=== PATIENT | female | born 1965 | race Caucasian/White ===

== ENCOUNTER 2024-08-14 10:59 | Outpatient (CLI) | payer BC, SELFPAY ==
--- NOTE | ~2024-08-14 | XR_ITS ---
Clinical Indication: Chest pain PA and lateral views of the chest: Comparison: None Findings: The lungs are clear, without evidence of focal consolidation or pleural effusion. Cardiome diastinal silhouette is within normal limits. Bones and soft tissues are unremarkable. Impression: Normal chest. Reviewed, dictated and finalized at location . Impression: Normal chest.
--- NOTE | ~2024-08-14 | XR_ITS ---
3 VIEWS LUMBAR SPINE Ordering provider: Ayanna Epps, PATramaine History: . Chest pain . Comparison: None. FINDINGS: VERTEBRAL BODIES: No visible fracture or subluxation. DISK SPACES: Narrowing of L3-L4, L4-L5 and L5-S1. SOFT TISSUES: Normal. Loaded colon with fecal material is suggestive of constipation. IMPRESSION: No acute osseous abnormality lumbar spine. Multilevel degenerative disc disease. Reviewed, dictated and finalized at location A.
--- NOTE | ~2024-08-14 | XR_ITS ---
AP and lateral views of the right hip Clinical history: Pain Findings: No acute fracture or dislocation is seen. Osseous alignment is anatomic. Right hip joint is unremarkable. Soft tissues are unremarkable. Impression: No significant abnormality is seen. Reviewed, dictated and finalized at location M. Impression: No significant abnormality is seen.
== END 2024-08-14 11:00 | disposition home or self-care (01) ==
LOC: MICIMG 11:07
PROVIDERS: PCP Physician Assistant; Visit Provider Physician Assistant
DX: M51.369 Other intervertebral disc degeneration, lumbar region without mention of lumbar back pain or lower extremity pain (principal); M51.379 Other intervertebral disc degeneration, lumbosacral region without mention of lumbar back pain or lower extremity pain; Z86.018 Personal history of other benign neoplasm
CPT/HCPCS: 71046; 72100; 73502

== ENCOUNTER 2024-08-21 08:15 | Outpatient (CLI) | payer BC, SELFPAY ==
--- NOTE | 2024-08-21 | EST_ITS ---
Patient Info Name: Lizy Fishman Age: 59 years : 1965 Gender: Female Ht: 66 in Wt: 213 lbs BSA: 2.16 m2 HR: 55 bpm BP: 126 / 84 mmHg Exam Date: 08/21/2024 9:25 AM Exam Location: [facility] Patient Status: Outpatient Admit Date: 08/21/2024 Staff Ordering Physician: Supriya, Ayanna SERVIN Attending Provider: Supriya, Ayanna SERVIN Exercise Technologist: [place] Exercise Physician: Napoleon Navarrete DO Exam Type: CA stress mil w NM Study Info Indications R07.9 - Chest pain, unspecified A regadenoson stress test was performed. Summary 1. 1. Negative lexiscan stress test for ischemic ST changes by ECG criteria. 2. 2. Stable hemodynamics throughout the test. 3. 3. Nuclear scan to follow and will be reported separately. Please correlate with it. 4. 4. Patient informed of the above results. Protocol: Lexiscan Stress ECG Details Stage: REST Duration (min): 2 min : 23 sec HR (bpm): 53 SBP (mmHg): 126 DBP (mmHg): 84 Stage: REST Duration (min): 2 min : 46 sec HR (bpm): 58 SBP (mmHg): 126 DBP (mmHg): 84 Stage: REST Duration (min): 15 min : 21 sec HR (bpm): 62 SBP (mmHg): 126 DBP (mmHg): 84 Stage: STAGE 1 Duration (min): 0 min : 59 sec HR (bpm): 94 SBP (mmHg): 128 DBP (mmHg): 91 Stage: RECOVERY Duration (min): 1 min : 0 sec HR (bpm): 80 SBP (mmHg): 128 DBP (mmHg): 91 Stage: RECOVERY Duration (min): 2 min : 0 sec HR (bpm): 72 SBP (mmHg): 128 DBP (mmHg): 91 Stage: RECOVERY Duration (min): 3 min : 0 sec HR (bpm): 70 SBP (mmHg): 112 DBP (mmHg): 86 Stage: RECOVERY Duration (min): 3 min : 7 sec HR (bpm): 68 SBP (mmHg): 112 DBP (mmHg): 86 Rest HR: 62 bpm Peak HR: 99 bpm Rest Sys BP: 126 mmHg Peak Sys BP: 128 mmHg Max Pred HR: 159 bpm % Max Pred HR: 62 % Target HR: 135 bpm Max RPP: 12,672 bpm*mmHg Termination Reason: Completed protocol Cardiac Symptoms: Shortness of breath Total Time: 1 min : 0 sec Rest Almaraz BP: 84 mmHg Peak Almaraz BP: 91 mmHg Total Dose: 0.4 mg Resting ECG Sinus rhythm. Stress ECG No ST changes. Arrhythmias None. Report Signatures
--- NOTE | ~2024-08-21 | NM_ITS ---
EXAMINATION: NM mil stress w perfusion DATE: 08/21/2024 11:26 INDICATION: Chest pain. TECHNIQUE: Rest images were obtained following intravenous administration of 10.31 mCi Tc99m tetrofos min (Myoview). The patient was infused intravenously with Lexiscan (regadenoson). Then, 32.7 mCi Tc99 m tetrofosmin (Myoview) was administered intravenously, and stress images were obtained. Data was rec onstructed into short axis and horizontal and vertical long axis SPECT images. Gated SPECT images wer e also obtained. COMPARISON: None. FINDINGS: There is no definite reversible or fixed perfusion abnormality to suggest ischemia or infar ction. There is no segmental wall motion abnormality. Left ventricular ejection fraction measures > 70%. IMPRESSION: 1. No definite ischemia or infarct. 2. Normal left ventricular ejection fraction measuring >70%. Reviewed, dictated and finalized at location A.
--- OUTSIDE RECORDS SUMMARY | 2024-08-21 08:34 | XMS_ITS | Data Portability ---
Author Organization [facility] Jamarcus Kessler Address [address] [facility] [place] [address] Care Team Providers Care Search Engine Optimization Manager Name Role Phone KARIE CHEEMA Primary Care Provider Unavailab le Assessment Encounter Date Assessment Date Assessment LastModified by Organization Details LastModified Time 11/11/2023 11/11/2023 Mammogram. pt declines testing. aware of guidelines and recommendatio ns. cologuard UTD in the last 3 years. Not available 12/02/2023 17:08:29 06/08/2024 06/08/2024 Mammogram. pt declines testing. aware of guidelines and recommendatio ns. cologuard UTD in the last 3 years. Not available 06/08/2024 09:20:19 Plan of Treatment Reminders Order Date Submit Date Provider Last Modified By Organization Details Last Modified Time Details Appointments ANY 15 2024 08:00A M JA Cardenas Not available Not available Not available Lab HbA1c (hemoglob in A1c), blood 2024 025 M.Setek [facility], [address], [place], [address], 06/20/2024 15:48:41 CBC w/ auto diff 2024 025 [email or web address] [facility], [address], [place], [address], 06/20/2024 15:49:04 CMP, serum or plasma 2024 025 [email or web address] [facility], [address], [place], [address], 06/20/2024 15:48:30 lipid panel, serum 2024 025 [place] [facility] [address], [place], [address], 06/20/2024 15:49:12 TSH + free T4, serum 2023 024 [place] [facility], [address], [place], [address], 11/17/2023 09:35:44 CBC w/ auto diff 2023 024 [facility], [address], [place], [address], 11/23/2023 12:35:57 CMP, serum or plasma 2023 024 [facility], [address], [place], [address], 11/23/2023 12:36:01 vitamin B12 + folate, serum or blood 2023 024 [place] [facility], [address], [place], [address], 11/17/2023 09:35:44 lipid panel, serum 2023 024 [facility], [address], [place], [address], 11/23/2023 12:35:48 HbA1c (hemoglob in A1c), blood 2023 024 [facility], [address], [address], [place], [address], 11/23/2023 12:36:06 Referral None recorded. Procedures lexiscan cardiolit e stress test (PROC) - Per availity, auth not required. Copy attached. Ref #[id number] WQ 2024 [facility] [address], [place], [address], 08/21/2024 04:17:09 Surgeries None recorded. Imaging XR, chest, 2 view 2024 [facility], [address], [place], [address], 08/14/2024 14:36:08 electroca rdiogram 2024 [place] In-Office Order, Internal Use Only DO Not Attach Compendium DO Not Attach Compendium, Do Not Delete/merge, [id number] 08/14/2024 17:06:13 MRI, brain, w/wo contrast 2024 [facility], [address], [place], [address], 2024 18:57:01 XR, hip, unilatera l, 2 or 3 view 2024 [facility], [address], [place], [address], 2024 04:34:17 XR, lumbar spine 2024 [facility], [address], [place], [address], 2024 04:34:18 Medication Orders nitroglyc jaylen 0.4 mg sublingua l tablet 2024 [place] [id number], [address] [place], [address], 08/14/2024 11:40:19 Contrave 8 mg-90 mg tablet,ex tended release 2024 025 [id number], [address] [place], [address], 06/08/2024 09:27:59 rosuvasta tin 5 mg tablet 2023 024 [id number], [address] [place], [address], 11/11/2023 14:41:09 bupropion HCl XL 150 mg 24 hr tablet, extended release 2023 025 [id number], [address] [place], [address], 06/08/2024 09:03:57 lisinopri l 20 mg-hydroc hlorothia zide 12.5 mg tablet 2023 024 [id number], [address] [place], [address], 06/08/2024 09:02:49 Wegovy 0.25 mg/0.5 mL subcutane ous pen injector 2023 024 [id number], [address] [place], [address], 11/15/2023 10:09:17 Patient TargetsNo targets recorded. Patient Instructions Encounter Date Encounter Id Patient Instructions Last Modified By Organization Details Last Modified Time 11/11/2023 [id number] A healthy lifestyle: care instructions Not available 11/11/2023 14:41:05 06/08/2024 [id number] A healthy lifestyle: care instructions Not available 06/08/2024 09:19:50 08/14/2024 [id number] A healthy lifestyle: care instructions Not available 08/14/2024 11:15:37 Reason for Referral None Reported. Results Created Date Observation Date Name Description Value Unit Range Abnormal Flag Note LastModifiedBy Organization Detail LastModifiedTime 08/15/1908/19/2024 michelle reynaga am No observ ation record ed. [place] In-[facility] Order Internal Use Only DO Not Attach Compendium DO Not Attach Compendium, Do Not Delete/merge, [id number] 08/19/2024 13:15:26 08/15/19 25 08/14/2024 XR, chest , 2 view No observ ation record ed. [facility] [address], [place], [address], 08/14/2024 14:36:08 08/17/19 25 08/15/2024 MRI, brain , w/wo contr ast No observ ation record ed. [facility] [address], [place], [address], 2024 18:57:01 Result Notes None recorded. Problems Name Problem SNOMED Code Status Onset Date Resolution Date Notes Provider Name and Address Organization Details Recorded Time Hyperlipide prasanth 18477792 Active 2023 JA Cardenas Attn: Accountin g,[address] [facility], [place], [address], [facility] 4 14:27:45 Benign essential hypertensio n 8922028 Active 2023 JA Cardenas Attn: Accountin g,[address] [facility], [place], [address], [facility] 4 14:27:46 Body mass index 30+ - obesity 534328450 Active 2023 JA Cardenas Attn: Accountin g,[address] [facility], [place], [address], [facility] 4 14:27:47 Obesity 890704336 Active 2023 JA Cardenas Attn: Accountin g,[address] , [place], [address], [facility] 4 14:27:55 Long-term drug therapy Active 2023 JA Cardenas Attn: Accountalonso g,[address] [facility], [place], [address], [facility] 4 14:27:57 Menopausal syndrome 694939279 Active 2023 JA Cardenas Attn: Accountalonso g,[address] [facility], [place], [address], [facility] 4 17:07:53 Prediabetes 252311274 Active 2024 JA Cardenas Attn: Accountin g,[address] [facility], [place], [address], [facility] 5 09:11:53 Parietal headache 770101367 Active 2024 JA Cardenas Attn: Accountalonso g,[address] [facility], [place], [address], [facility] 5 11:45:37 History of meningioma 5611492773835 01 Active 2024 JA Cardenas Attn: Accountalonso g,[address] [facility], [place], [address], [facility] 5 11:45:40 Problem Notes None recorded. Procedures Surgical History Date Name Laterality Status Provider Name and Address Organization Details Recorded Time Hernia Repair completed Maira Sanchez MA [facility] 11/11/2023 16:04:36 section completed Maira Sanchez [facility] 11/11/2023 16:04:45 laparoscopy completed Maira Sanchez MA [facility] 11/11/2023 16:04:56 Imaging Results Imaging Date Name Status LastModified by Organization Details LastModified Time 08/19/2024 electrocardiogram completed [facility] Order Internal Use Only DO Not Attach Compendium DO Not Attach Compendium, Do Not Delete/merge, [id number] 08/19/2024 13:15:26 08/14/2024 XR, chest, 2 view active [facility] [address], [place], [address], 08/14/2024 14:36:08 08/15/2024 MRI, brain, w/wo contrast active [facility] [address], [place], [address], 2024 18:57:01 Procedure Notes None recorded. Medical Equipment None Reported. Allergies No known drug allergies Medications Name Sig Start Date Stop Date Status Note LastModified by Organization Details LastModified Time lisinopril 20 mg-hydrochl orothiazide 12.5 mg tablet Take by oral route for 90 days. active Not Available Not Available No t Available fluconazole 150 mg tablet TAKE 1 TAB BY MOUTH NOW AND ON DAY 3. 11/10 completed Not Available Not Available Not Available prednisone 20 mg tablet TAKE 2 TABLETS BY MOUTH EVERY DAY FOR 5 DAYS 11/10 completed Not Available Not Available Not Available ciprofloxac in 500 mg tablet TAKE 1 TABLET BY MOUTH EVERY 12 HOURS 11/10 completed Not Available Not Available Not Available benzonatate 100 mg capsule TAKE 1 CAPSULE BY MOUTH THREE TIMES A DAY NEEDED FOR COUGH 11/10 completed Not Available Not Available Not Available nitroglycer in 0.4 mg sublingual tablet Take 1 tab as directed sublingua l at onset of chest pain may repeat in 5 minutes 2024 active Not Available Not Available Not Avai lable lisinopril 10 mg-hydrochl orothiazide 12.5 mg tablet TAKE 1 TABLET BY MOUTH EVERY DAY 11/10 completed Not Available Not Available Not Available rosuvastati n 5 mg tablet TAKE 1 TABLET BY MOUTH EVERYDAY AT BEDTIME active Not Available Not Available No t Available bupropion HCl XL 150 mg 24 hr tablet, extended release TAKE 1 TABLET BY MOUTH EVERY DAY IN THE MORNING active Not Available Not Available No t Available Vitamin C active Not Available Not Georgie ilable Not Available B12 active otc Not Available Not Availa ble Not Available Contrave 8 mg-90 mg tablet,exte nded release WEEK 1: TAKE 1 TAB BY MOUTH IN THE AM WEEK 2: TAKE 1 TAB 2 TIMES A DAY, WEEK 3: TAKE 2 TABLETSIN THE AM, AND ONE TAB IN THE PM WEEK 4 AND AFTER: TAKE TWO TABS 2 TIMES A DAY active Not Available Not Available No t Available Lumify 0.025 % eye drops Apply 1 mL twice a day by ophthalmi c route. active Not Available Not Available No t Available Proair Digihaler 90 mcg/actuati on aerosol powder breath act, sensor INHALE 2 PUFFS EVERY 4 HOURS BY INHALATIO N ROUTE NEEDED active Not Available Not Available No t Available Wegovy 0.25 mg/0.5 mL subcutaneou s pen injector INJECT 0.25 MG EVERY WEEK BY SUBCUTANE OUS ROUTE. active Not Available Not Available No t Available Vitals Date Recorded Body height Body mass index (BMI) Body weight Respiratory rate Oxygen saturation Oxygen saturation in Arterial blood by Pulse oximetry Heart rate Systolic blood pressure Diastolic blood pressure Provider Name and Address Organization Details Last Updated DateTime 4 167.64 cm 33.7 kg/m2 26357.7 3 g 20 /min 96 % 96 % 68 /min 126 mm[Hg] 82 mm[Hg] Denisse Dennis MA [facility] 4 14:13:39 Date Recorded Systolic blood pressure Diastolic blood pressure Provider Name and Address Organization Details Last Updated DateTime 11/11/2023 132 mm[Hg] 80 mm[Hg] JA Cardenas Attn: Accounting,[address] [place], [address], [facility] 11/11/2023 14:36:37 Date Recorded Body height Body mass index (BMI) Body weight Respiratory rate Oxygen saturation Oxygen saturation in Arterial blood by Pulse oximetry Heart rate Systolic blood pressure Diastolic blood pressure Provider Name and Address Organization Details Last Updated DateTime 5 167.64 cm 34.7 kg/m2 52224.3 6 g 20 /min 96 % 96 % 60 /min 136 mm[Hg] 82 mm[Hg] Denisse Dennis MA [facility] 5 09:09:38 Date Recorded Systolic blood pressure Diastolic blood pressure Systolic blood pressure Diastolic blood pressure Provider Name and Address Organization Details Last Updated DateTime 06/08/2024 140 mm[Hg] 80 mm[Hg] 132 mm[Hg] 82 mm[Hg] JA Cardenas Attn: Accounting ,[address] [place], [address] , [facility] 5 09:26:05 Date Recorded Body height Body mass index (BMI) Body weight Oxygen saturation Oxygen saturation in Arterial blood by Pulse oximetry Heart rate Systolic blood pressure Diastolic blood pressure Provider Name and Address Organization Details Last Updated DateTime 5 167.64 cm 34.4 kg/m2 78140.1 7 g 97 % 97 % 63 /min 128 mm[Hg] 82 mm[Hg] Denisse Dennis MA [facility] 5 10:57:54 Social History Question Answer Notes LastModified by Organizat ion Details LastModified Time Tobacco Smoking Status Never Smoker Denisse Dennis MA null, [facility] 11/11/2023 14:09:10 Do You Have An Advance Directive? No Information not available 11/11/2023 What Is Your Level Of Alcohol Consumption? Occasional Information not available 11/11/2023 Are You Blind Or Do You Have Difficulty Seeing? No Glasses/ca tracts Information not available 11/11/2023 What Is Your Level Of Caffeine Consumption? Occasional Coffee Information not available 11/11/2023 In The 14 Days Before Symptom Onset, Have You Had Close Contact With A Laboratory-confir med COVID-19 While That Case Was Ill? No Information not available 11/10/2023 In The 14 Days Before Symptom Onset, Have You Had Close Contact With A Person Who Is Under Investigation For COVID-19 While That Person Was Ill? No Information not available 11/10/2023 Have You Been To An Area Known To Be High Risk For COVID-19? No Information not available 11/10/2023 Are You Deaf Or Do You Have Serious Difficulty Hearing? No Information not available 11/11/2023 What Type Of Diet Are You Following? REGULAR Information not available 11/11/2023 Are There Any Guns Present In Your Home? No Information not available 11/11/2023 What Was The Date Of Your Most Recent Tobacco Screening? 08/14/2024 Information not available 08/14/2024 Do You Use Your Seat Belt Or Car Seat Routinely? Yes Information not available 11/10/2023 Do You Have Smoke And Carbon Monoxide Detectors In Your Home? Yes Information not available 11/10/2023 Do You Use Any Illicit Or Recreational Drugs? No Information not available 11/11/2023 Do You Use Sunscreen Routinely? Yes Information not available 11/11/2023 Has Tobacco Cessation Counseling Been Provided? Yes Information not available 11/10/2023 On What Date Was Tobacco Cessation Counseling Provided? 08/14/2024 Information not available 08/14/2024 Do You Or Have You Ever Used Any Other Forms Of Tobacco Or Nicotine? No Information not available 11/11/2023 Sex: Female Functional Status Question Answer Note LastModified by Organizat ion Details LastModified Time Are you able to care for yourself? Yes Information not available 11/10/2023 What is your exercise level? Moderate walk 5 miles Information not available 11/11/2023 Mental Status None recorded. Family History Relationship Description Onset Age of this Age Resolved Age Notes LastModified by Organization Details LastModified Time Father Alcohol abuse [email or web address] Not available 2023 16:05:10 Brother Alcohol abuse [email or web address] Not available 2023 16:05:10 Brother Heart disease [email or web address] Not available 2023 16:05:20 Brother Hypertensive disorder [email or web address] Not available 2023 16:05:34 Mother Heart disease [email or web address] Not available 2023 16:05:20 Mother Hypercholest erolemia apaytonma Not available 2023 16:05:25 Mother Hypertensive disorder apaytonma Not available 2023 16:05:34 Mother Malignant tumor of lung apaytonma Not available 2023 16:05:48 Medical History Condition Response Acid Reflux (GERD) Y Other Y High Blood Pressure Y Asthma Y High Cholesterol Y Gynecological History Statement/Question Response Menses Monthly N Current Control Method Other Obstetrics History GPAL:G 2 P 2 0 0 2 Type Value Full Term 2 Induced 0 Spontaneous 0 Premature 0 Living 2 Total 2 Immunizations Vaccine Type Date Status Note Provider Nam e and Address Organization Details Recorded Time COVID-19 vaccine, vector-nr, rS-Ad26, PF, 0.5 mL 08/11/2020 completed Denisse Dennis MA [facility] 06/07/2024 09:11:56 Past Encounters Encounter ID Performer Location Encounter Start Date Encounter Closed Date Diagnosis/Indication Diagnosis SNOMED-CT Code Diagnosis ICD10 Code Diagnosis Note [id number] JA Cardenas [facility] [place] [place] [address] [place] [address] 11/11/2023 14:01:28 11/11/2023 14:46:47 Body mass index 30+ - obesity 977105898 Z68.33 start wegovy injectable therapy. no personal or family hx of Medullary thyroid cancer or MEN conditions . Obesity 893380989 E66.8 discussed healthy diet, exercise, controllin g carbohydra herbie and added sugars in the diet Adult heal th examination 243063462 Z00.01 wellness exam completed Benign ess ential hypertension 6527093 I10 refill on lisinopril hctz 20/12.5mg daily. Hyperlipidemia 64536308 E78.5 refill rosuvastat in 5mg daily. due for fasting lipids. Long-term drug therapy 552844271 Z79.899 cmp, cbc and b12, folate labs are due Diabetes m ellitus screening 089972674 Z13.1 a1c screening due Thyroid di sorder screening 052258109 Z13.29 thyroid panel due. Menopausal syndrome 1237 80746 N95.9 refill on wellbutrin XL 150mg daily. [id number] JA Cardenas [facility] [place] [address] [place] [address] 06/08/2024 08:57:10 06/08/2024 11:48:26 Hyperlipidemia 09851405 E78.5 Stable on rosuvastat in 5mg daily. due for fasting lipids. Last LDL was slightly elevated at 119. Benign ess ential hypertension 4062752 I10 Blood pressure is stable on lisinopril hctz 20/12.5mg daily. 130/82 today Menopausal syndrome 1237 56179 N95.9 Patient does have ongoing menopausal flushes Body mass index 30+ - obesity 404193737 Z68.33 BMI is 34.7. Per patient request she will restart contrave therapy. Obesity 161692199 E66.9 discussed healthy diet, exercise, controllin g carbohydra herbie and added sugars in the diet Long-term drug therapy 183882962 Z79.899 cmp, cbc do Prediabetes 099489533 R7 3.03 6.1% A1c on October, she is due for updated A1c [id number] [facility] Alicia Gray [address] [place] [address] 08/14/2024 10:47:44 08/14/2024 12:05:53 Body mass index 30+ - obesity 669512470 Z68.33 BMI is 34.7. Per patient request she will restart contrave therapy. Obesity 364084436 E66.9 discussed healthy diet, exercise, controllin g carbohydra herbie and added sugars in the diet Pain in ri ght hip joint 1375560984 88743 M25.551 Check x-ray of the right hip and lumbar spine Chest pain 09637100 R07. 9 Abnormal EKG in the office showing possible inferior infarct with likely ischemia. Refer for [facility] Lexiscan stress testing as she is not able to do the treadmill due to right hip pain that is also being evaluated. She has an upcoming trip to [place] next week we need to get cardiac evaluation as soon as possible. Prescripti on for nitroglyce rin sublingual given. Also send for chest x-ray Parietal headache 855711 002 R51.9 MRI as ordered above History of meningioma 11 10903812 44430 Z86.018 History of right-side d meningioma of the brain. Now with increase in headaches. Refer for MRI brain with and without contrast Electrocar diogram abnormal 451431747 R94.31 Possible inferior infarct and signs of ischemia Health Concerns Section Related Observation LastModified by Organization Detai ls LastModified Time None Recorded Concern Status LastModified by Organization Details LastModified Time None Recorded Advance Directives Directive N: Payers Encounter Date Sequence Insurance Name Policy Number Policy Londono Covered Member ID Londono Member ID Guarantor Name 11/11/2023 1 [place] [id number] Lizy Fishman [id number] Lizy Fishman 06/08/2024 1 [place] [id number] Lizy Fishman [id number] Lizy Fishman 08/14/2024 1 [facility] [id number] Lizy Fishman [id number] Lizy Fishman Notes Date Note Type Note Provider Name and Address Organization Details Recorded Time 4 text/html HyperlipidemiaReported bypatient.Notes:pt is stable on rosuvastatin 5mg daily. due for labs.HypertensionReported bypatient.Notes:pt is on lisinopril 20/hctz 12.5mg daily Menopausal: on bupropion XL 150mg daily to help manage hot flashes. JA Cardenas Attn: Accounting,[address] [facility], [place], [address], [facility] 12/02/2023 17:08:52 5 text/html HyperlipidemiaReported bypatient.Notes:pt is stable on rosuvastatin 5mg daily. due for labs.HypertensionReported bypatient.Notes:pt is on lisinopril 20/hctz 12.5mg daily Menopausal: on bupropion XL 150mg daily to help manage hot flashes. JA Cardenas Attn: Accounting,[address] [facility], [place], [address], [facility] 06/29/2024 08:25:14 5 text/html Angina/Chest PainReported bypatient.Location:middle chest; midsternal Quality:pressure;tightness Severity:moderate Duration:lasts minutes Onset/Timing:started 8weeks ago Context:exertional;occurs with emotional stress Alleviating Factors:relieved with rest Aggravating Factors:worse with stress/emotional upset Associated Symptoms:no dyspnea; no decrease in exercise capacity; no fatigue; no nocturnal episodes; no resting episodes; no associated palpitations;dizziness;naus ea;diaphoresis;lightheadedn essNotes:2 months had episode of chest tightness, sweats, dizzy, just felt overall horrible and upset stomach. Lasted 15 min. She now episodic random episodes of chest pain 1 min lasting.HeadacheReported bypatient.Notes:Patient has right-sided parietal headache and history of benign meningioma surgical procedure over 10 years ago. This is similar headache pain to what she had back before her diagnosis of meningioma. She now has headaches 2-3 times per weekHip(s)Reported bypatient.Location:right Quality:aching; dull; superficial; deep; constant Severity:moderate Duration:continuous since onset Context:bending; lifting; twisting Alleviating Factors:nothing helps Aggravating Factors:lying down; walking Associated Symptoms:no weakness; no numbness JA Cardenas Attn: Accounting,[address] [place] [address], [address], [facility] 08/14/2024 11:46:31 OBGyn Episode No OBEpisode recorded.
--- OUTSIDE RECORDS SUMMARY | 2024-08-21 08:34 | XMS_ITS | Encounter Summary ---
Author Organization [employer] [facility] Address [address] [place] [address] Care Team Providers Care Head Of Talent Management Name Role Phone Unavailable Primary Care Provider Unavailabl e Encounter Details Date Type Department Care Team (Late st Contact Info) Description 08/19/2007 Outpatient Historical HIS [facility] [place] [address] [facility] [place] [address] Social History Tobacco Use Types Packs/Day Years Used Date Smoking Tobacco: Never Assessed Comments Unknown Sex and Gender Information Value Date Recorded Sex Assigned at Not on file Legal Sex Female 5:32 AM [employer] Gender Identity Not on file Sexual Orientation Not on file documented as of this encounter Plan of Treatment Not on file documented as of this encounter Procedures Procedure Name Priority Date/Time Associated Diagnosis Comments XR CHEST PA AND LATERAL 2 VW Routine 08/19/2007 7:09 PM CDT documented in this encounter Results * XR CHEST PA AND LATERAL (08/19/2007 7:09 PM CDT) Anatomical Region Laterality Modality Chest Other 08/19/2007 7:09 PM CDT Narrative 08/20/2007 12:44 PM CDT [address] [address] Admit Date: 08/19/2007 LUCAS OCONNELL Sex: F Admit Prov: MAGO AUSTIN Date: 1965 Primary Care Prov: CMRN: [id number] Room: [facility] SSN: [id number] IMAGING SERVICES Ordering Prov: N/A Accession Number: [id number] Interpretation CHEST 2 VIEWS, 08/19/2007 History: Cough, congestion, difficulty breathing. Findings: PA and lateral views of the chest demonstrate the heart size and mediastinal contours to be within normal limits. The lung zarate are clear. There is no focal infiltrate, pleural effusion, or bony abnormality seen. Impression: Exam within normal limits. . Dictated by: RETA CARROLL 08/20/2007 09:07 Electronically signed by: RETA CARROLL 08/20/2007 12:44 Transcribed: 08/20/2007 11:45 SMM Procedure Note Reta Carroll - 08/20/2007 [facility] [address], [place] [address] Admit Date: 08/19/2007 LUCAS OCONNELL Sex: F Admit Prov: MAGO AUSTIN Date: 1965 Primary Care Prov: CMRN: [id number] Room: [facility]: [address] [place] [address] IMAGING SERVICES Ordering Prov: N/A Interpretation CHEST 2 VIEWS, 08/19/2007 History: Cough, congestion, difficulty breathing. Findings: PA and lateral views of the chest demonstrate the heartsize and mediastinal contours to be within normal limits. The lung zarate areclear. There is no focal infiltrate, pleural effusion, or bony abnormalityseen. Impression: Exam within normal limits. . Dictated by: RETA CARROLL 08/20/2007 09:07 Electronically signed by: RETA CARROLL 08/20/2007 12:44 Transcribed: 08/20/2007 11:45 SMM Mago Kesslre Mai, MD DIAGNOSTIC IMAGING ORDERABLES Fi nal Result documented in this encounter Visit Diagnoses Not on filedocumented in this encounter
--- OUTSIDE RECORDS SUMMARY | 2024-08-21 08:34 | XMS_ITS | Data Portability ---
Author Organization [facility], Main Office Address [address] [place] [address] Assessment No assessment recorded. Plan of Treatment Reminders Order Date Submit Date Provider Last Modified By Organization Details Last Modified Time Details Appointments None recorded . Lab TSH, serum or plasma 023 12/01/19 23 [email or web address] [facility], [address], [place], [address], 3 14:07:58 T4, free, serum 023 12/01/19 23 [email or web address] [facility], [address], [place], [address], 3 14:07:58 CMP, serum or plasma 023 12/01/19 23 [email or web address] [facility], [address], [place], [address], 3 14:07:57 CBC w/ auto diff 023 12/01/19 23 [email or web address] [facility], [address], [place], [address], 3 14:07:57 HbA1c (hemoglo bin A1c), blood 023 12/01/19 23 [email or web address] [facility], [address], [place], [address], 3 14:07:58 lipid panel, serum 023 12/01/19 23 [email or web address] [facility], [address], [place], [address], 3 14:07:58 Referral None recorded . Procedures None recorded . Surgeries None recorded . Imaging None recorded . Medication Orders None recorded . Patient TargetsNo targets recorded. Patient InstructionsNo instructions recorded. Reason for Referral None Reported. Results Created Date Observation Date Name Description Value Unit Range Abnormal Flag Note LastModifiedBy Organization Detail LastModifiedTime 11/14/19 22 11/13/2021 COLOG UARD cologuard result reportable negati ve negati ve NEGAT IMMANUEL TEST RESUL T. A negat immanuel Colog uard resul t indic ates a low likel ihood that a color ectal cance r (CRC) or advan alina adeno ma (rafael omato us polyp s with more advan alina pre-m align ant featu res) is prese nt. The chanc e that a perso n with a negat immanuel Colog uard test has a color ectal cance r is less than 1 in 1500 (nega tive predi ctive value >99.9 %) or has an advan alina adeno ma is less than 5.3% (nega tive predi ctive value 94.7% ). These data are based on a prosp ectiv e cross -sect ional study of 10,00 0 indiv idual s at [facility] risk for color ectal cance r who were scree jacklyn with both Colog uard and colon oscop y. (Alfie Neely. et al, N Engl J Med 2014; 370(1 4):12 86-12 97) The dom l value (refe rence range ) for this assay is negat immanuel. COLOG UARD RE-SC AUBREE HARDY RECOM MENDA TION: Perio dic color ectal cance r scree giacomo is an impor tant part of preve ntive healt hcare for asymp tomat ic indiv idual s at [facility] risk for color ectal cance r. Follo wing a negat immanuel Colog uard resul t, the Ameri can Cance r Socie ty and U.S. Multi -Soci ety Task Force scree giacomo guide lines recom mend a Colog uard re-sc aubree hardy inter dayana of 3 years . Refer ences : Carlito can Cance r Socie ty Guide line for Color ectal Cance r Scree giacomo: https ://theresa w.can cer.o rg/ca ncer/ colon -rect al-ca ncer/ detec tion- diagn osis- stagi ng/ac s-rec ommen datio ns.ht ml.; Eitan DK, Jaclyn borden CR, Luke BustamanteK, Color ectal Cance r Scree giacomo: Recom menda tions for Physi cians and Patie nts from the U.S. Multi -Soci ety Task Force on Color ectal Cance r Scree giacomo , Quin wrightntjosemanuel rolog y 2017; 112:1 016-1 030. TEST DESCR IPTIO N: [place] site algor ithmi c annemarie sis of stool DNA-b marion alvarez with hemog lobin immun oassa y. Quant itati ve value s of indiv idual bioma rkers are not repor table and are not assoc iated with indiv idual bioma rker resul t refer ence range s. Colog uard is inten ded for color ectal cance r scree giacomo of adult s of eithe r sex, 45 years or older , who are at [facility] for color ectal cance r (CRC) . Colog uard has been appro miriam for use by the U.S. FDA. The perfo rmanc e of Colog uard was estab lishe d in a cross secti onal study of [facility] adult s aged 50-84 . Colog uard perfo rmanc e in patie nts ages 45 to 49 years was estim ated by lenin-jen box annemarie sis of near- age group s. Colon oscop ies perfo rmed for a posit immanuel resul t may find as the most clini raquel signi ficchriss t lesio n: color ectal cance r [4.0% ], advan alina adeno ma (incl uding sessi le jorge richard polyp s great er than or equal to 1cm diame ter) [20%] or non- advan alina adeno ma [31%] ; or no color ectal neopl kurt [45%] . These estim ates are deriv ed from a prosp ectiv e cross -sect ional screjosemanuel gooden study of ,00 0 indiv idual s at [facility] risk for color ectal cance r who were scree jacklyn with both Colog uard and colon oscop y. (Alfie Lambert et al, N Engl J Med 2014; 370(1 4):12 86-12 97.) Colog uard may produ ce a false negat immanuel or false posit immanuel resul t (no color ectal cance r or preca ncero us polyp prese nt at colon oscop y follo w up). A negat immanuel Colog uard test resul t does not guara ntee the absen ce of CRC or advan alina adeno ma (pre- cance r). The curre nt Colog uard scree giacomo inter dayana is every 3 years . (Amer ican Cance r Socie ty and U.S. Multi -Soci ety Task Force ). Colog uard perfo rmanc e data in a 0 patie nt pivot al study using colon oscop y as the refer ence metho d can be acces sed at the follo wing locat ion: www.e xactl abs.c om/re yinka . Addit ional descr iptio n of the Colog uard test proce ss, warni ngs and preca ution s can be found at www.c flou melchor.c om. Not Available [employer] (Cologuard Orders Only) [address], [place], [address], 11/19/2021 00:55:54 Result Notes None recorded. Problems Name Problem SNOMED Code Status Onset Date Resolution Date Notes Provider Name and Address Organization Details Recorded Time Benign essential hypertension 6551440 Active 2019 Not Available [facility] 3 19:48:56 Menopausal flushing 318811657 Active 2021 Not Available [facility] 3 19:48:56 Menopausal symptom 91635875 Active 2021 Not Available [facility] 3 19:48:56 Infection of tooth 489304166 Active 2021 Not Available [facility] 3 19:48:56 Hyperlipidemi a 21001523 Active 2021 Ramona Martin, RMA null, [facility] 3 14:55:40 Weight gain 5690517 Active 2021 Not Available [facility] 3 19:48:56 Asthma 283556736 Active 2022 JA Cardenas [address], [address], [place], [address] , [employer] [facility] 3 14:33:48 Acute urinary tract infection 163332808 Active 2023 JA Cardenas [address], [address], [place], [address] , [employer] [facility] 4 17:27:22 Postviral cough 682707063 Active 2023 JA Cardenas [address], [place], [address] , [employer] 4 17:11:30 Problem Notes None recorded. Procedures Surgical History Date Name Laterality Status Provider Name and Address Organization Details Recorded Time 06/12/19 21 Date of Last Colonoscopy completed Not Available [facility] 07/29/2022 19:48:13 11/11/19 18 hysteroscopy completed Not Available [facility] 023 19:48:14 10/30/19 18 endometrial ablation completed Not Available [facility] 07/29/2022 19:48:14 05/31/19 05 Brain Surgery completed Not Available [facility] 2022 19:48:14 05/31/18 99 section completed Not Available [facility] 05/2022 19:48:14 05/31/18 87 section completed Not Available [facility] 05/2022 19:48:14 05/31/18 86 laparoscopy completed Not Available [facility] 03/01/20 23 19:48:14 Cyst Removal completed Not Available [facility] 07/29/2022 19:48:14 Imaging Results None recorded. Procedure Notes None recorded. Medical Equipment None Reported. Allergies No known drug allergies Medications Name Sig Start Date Stop Date Status Note LastModified by Organization Details LastModified Time doxycyclin e hyclate 100 mg capsule Take 1 capsule twice a day by oral route with meals. active Not Available Not Available No t Available lisinopril 20 mg-hydroch lorothiazi de 12.5 mg tablet TAKE 1 TABLET BY MOUTH EVERY DAY active Not Available Not Available No t Available azithromyc in 250 mg tablet TAKE 2 TABLETS BY MOUTH ON DAY 1 AND THEN TAKE 1 TABLET BY MOUTH ONCE A DAY ON DAY 2 THROUGH DAY 5 01/21 completed Not Available Not Available Not Available fluconazol e 150 mg tablet TAKE 1 TAB BY MOUTH NOW AND ON DAY 3. active Not Available Not Available No t Available hydrocodon e 5 mg-acetami nophen 325 mg tablet TAKE 1 TABLET BY MOUTH EVERY 6 HOURS NEEDED FOR PAIN 09/23 completed Not Available Not Available Not Available prednisone 20 mg tablet TAKE 2 TABLETS BY MOUTH EVERY DAY FOR 5 DAYS active Not Available Not Available No t Available phentermin e 37.5 mg tablet take half to one tab po daily w/food. 10/21 completed Not Available Not Available Not Available ciprofloxa dacia 500 mg tablet TAKE 1 TABLET BY MOUTH EVERY 12 HOURS active Not Available Not Available No t Available benzonatat e 100 mg capsule TAKE 1 CAPSULE BY MOUTH THREE TIMES A DAY NEEDED FOR COUGH active Not Available Not Available No t Available cephalexin 500 mg capsule TAKE 1 CAPSULE BY MOUTH 4 TIMES DAILY 01/21 completed Not Available Not Available Not Available lisinopril 10 mg tablet Take 1 tablet every day by oral route. 09/23 completed Not Available Not Available Not Available diclofenac sodium 75 mg tablet,del ayed release Take 1 tablet twice a day by oral route as needed. 09/27 completed Not Available Not Available Not Available zinc 50 mg tablet Take 1 tablet every day by oral route. 09/16 completed otc, takes daily Not Available Not Available Not Available Tylenol-Co deine #3 300 mg-30 mg tablet Take 1 tablet every 6-8 hours by oral route as needed. 04/09 completed Not Available Not Available Not Available lisinopril 10 mg-hydroch lorothiazi de 12.5 mg tablet Take 1 tablet every day by oral route. 10/07 completed Not Available Not Available Not Available methylpred nisolone 4 mg tablets in a dose pack TAKE BY MOUTH DIRECTED ON INSIDE OF PACKAGE 01/21 completed Not Available Not Available Not Available amoxicilli n 875 mg-potassi um clavulanat e 125 mg tablet TAKE 1 TABLET BY MOUTH EVERY 12 HOURS 01/21 completed Not Available Not Available Not Available rosuvastat in 5 mg tablet TAKE 1 TABLET BY MOUTH EVERYDAY AT BEDTIME active Not Available Not Available No t Available bupropion HCl XL 150 mg 24 hr tablet, extended release TAKE 1 TABLET BY MOUTH EVERY DAY IN THE MORNING active Not Available Not Available No t Available Vitamin C active w/d3 Not Available Not Georgie ilable Not Available B Complex otc, takes daily 2020 active Not Available Not Available Not Avai lable Vitamin D3 otc, takes daily 09/16 completed Not Available Not Available Not Available B12 3,000 mcg, otc, takes daily 10/22 completed Not Available Not Available Not Available Probiotic otc, takes daily 2020 active Not Available Not Available Not Avai lable Proair Digihaler 90 mcg/actuat ion aerosol powder breath act, sensor INHALE 2 PUFFS EVERY 4 HOURS BY INHALATIO N ROUTE NEEDED active Not Available Not Available No t Available Vitals Date Recorded Body mass index (BMI) Body height Oxygen saturation Oxygen saturation in Arterial blood by Pulse oximetry Heart rate Respiratory rate Body temperature Body weight Systolic blood pressure Diastolic blood pressure Provider Name and Address Organization Details Last Updated DateTime 1 34.9 kg/m2 165.1 cm 97 % 97 % 64 /min 16 /min 97.8 [degF] 42124.4 g 130 mm[Hg] 66 mm[Hg] Not Available [facility] 3 19:48:42 Date Recorded Body mass index (BMI) Body height Oxygen saturation Oxygen saturation in Arterial blood by Pulse oximetry Heart rate Body temperature Body weight Systolic blood pressure Diastolic blood pressure Provider Name and Address Organization Details Last Updated DateTime 1 34.3 kg/m2 165.1 cm 98 % 98 % 65 /min 97.7 [degF] 12304.0 3 g 120 mm[Hg] 80 mm[Hg] Not Available [facility] 3 19:48:42 Date Recorded Body mass index (BMI) Body height Oxygen saturation Oxygen saturation in Arterial blood by Pulse oximetry Heart rate Respiratory rate Body temperature Body weight Systolic blood pressure Diastolic blood pressure Provider Name and Address Organization Details Last Updated DateTime 2 34.5 kg/m2 165.1 cm 96 % 96 % 95 /min 16 /min 97.1 [degF] 29957.7 8 g 122 mm[Hg] 80 mm[Hg] Not Available [facility] 3 19:48:43 Date Recorded Body height Body temperature Body mass index (BMI) Body weight Respiratory rate Oxygen saturation Oxygen saturation in Arterial blood by Pulse oximetry Heart rate Systolic blood pressure Diastolic blood pressure Provider Name and Address Organization Details Last Updated DateTime 3 165.1 cm 97.5 [degF] 35.3 kg/m2 04540.5 8 g 16 /min 98 % 98 % 67 /min 120 mm[Hg] 72 mm[Hg] CELIA Martino [place] - [facility] 3 11:01:00 Social History Question Answer Notes LastModified by Organizat ion Details LastModified Time Tobacco Smoking Status Never Smoker Not Available [facility] 07/29/2022 19:48:07 What Is Your Level Of Alcohol Consumption? Occasional [id number] Information not available 07/29/2022 What Is Your Level Of Caffeine Consumption? Moderate [id number] Information not available 07/29/2022 How Much Tobacco Do You Chew? None [id number].[id number] Information not available 07/29/2022 In The 14 Days Before Symptom Onset, Have You Had Close Contact With A Laboratory-confir med COVID-19 While That Case Was Ill? No [id number] Information not available 07/29/2022 In The 14 Days Before Symptom Onset, Have You Had Close Contact With A Person Who Is Under Investigation For COVID-19 While That Person Was Ill? No [id number] Information not available 07/29/2022 Are You Currently Employed? Yes [email or web address] Information not available 10/21/2022 What Type Of Diet Are You Following? REGULAR [id number] Information not available 07/29/2022 Which Illicit Or Recreational Drugs Have You Used? None [id number] Information not available 07/29/2022 Do You Or Have You Ever Used E-cigarettes Or Vape? Never Used Electronic Cigarettes [id number].[id number] Information not available 07/29/2022 What Is Your Occupation? [employer] MIGRATION.[id number] 1322 Information not available 07/29/2022 Have There Been Any Changes To Your Family Or Social Situation? No MIGRATION.[id number] 1364 Information not available 07/29/2022 Are There Any Guns Present In Your Home? No MIGRATION.[id number] Information not available 07/29/2022 Do You Use Insect Repellent Routinely? No [email or web address] Information not available 10/21/2022 What Was The Date Of Your Most Recent Tobacco Screening? 09/16/2020 [id number] Information not available 07/29/2022 What Is Your Relationship Status? MIGRATION.[id number] 3217 Information not available 07/29/2022 Do You Use Your Seat Belt Or Car Seat Routinely? Yes MIGRATION.[id number] 6122 Information not available 07/29/2022 Do You Have Smoke And Carbon Monoxide Detectors In Your Home? Yes MIGRATION.[id number] 7713 Information not available 07/29/2022 Do You Or Have You Ever Used Smokeless Tobacco? Never Used Smokeless Tobacco MIGRATION.[id number] 2464 Information not available 07/29/2022 How Much Tobacco Do You Smoke? No MIGRATION.[id number] 5412 Information not available 07/29/2022 Do You Use Any Illicit Or Recreational Drugs? No MIGRATION.572281 0331 Information not available 07/29/2022 Do You Use Sunscreen Routinely? Yes [email or web address] Information not available 10/21/2022 How Many Years Have You Smoked Tobacco? 0 [id number].[id number] 8935 Information not available 07/29/2022 Have You Recently Traveled Abroad? No MIGRATION.[id number] 9160 Information not available 07/29/2022 Do You Have Any Dietary Restrictions? No MIGRATION.[id number] 6244 Information not available 07/29/2022 Do You Or Have You Ever Used Any Other Forms Of Tobacco Or Nicotine? No MIGRATION.319225 7034 Information not available 07/29/2022 Sex: Unknown Functional Status Question Answer Note LastModified by Organizat ion Details LastModified Time What is your exercise level? Moderate [id number] Information not available 07/29/2022 Mental Status None recorded. Family History Relationship Description Onset Age of this Age Resolved Age Notes LastModified by Organization Details LastModified Time Mother Malignant tumor of lung [id number] Not available 07/29/2022 19:48:14 Medical History Condition Response EYE PROBLEMS Y HEARTBURN / REFLUX Y HYPERTENSION Y ASTHMA Y Gynecological History Statement/Question Response Date of Last Mammogram 10/07/2017 Date of Last Colonoscopy 06/12/2020 Sexually Active? Y Obstetrics History GPAL:G 2 P 0 0 0 2 Type Value Living 2 Total 2 Past Encounters Encounter ID Performer Location Encounter Start Date Encounter Closed Date Diagnosis/Indication Diagnosis SNOMED-CT Code Diagnosis ICD10 Code Diagnosis Note [id number] [facility] [address] [place] [address] 09/16/2020 00:00:00 09/27/2020 20:07:11 [id number] [facility] [address] [place] [address] 11/12/2020 00:00:00 11/27/2020 22:41:42 [id number] [facility] [address] [place] [address] 09/24/2021 00:00:00 09/25/2021 21:38:35 [id number] JA Cardenas [facility] [address] [place] [address] 10/22/2022 10:39:04 10/22/2022 11:36:30 Adult health examination 580105902 Z00.01 well exam completed Benign ess ential hypertension 4907218 I10 stable on lisinopril hctz 20/12.5mg daily. Hyperlipidemia 40367561 E78.5 stable on crestor 5mg daily. repeat labs in November (pt prefers november when her insurance changes and will be better coverage). Diabetes m ellitus screening 085462480 Z13.1 screening A1c due in november. Thyroid di sorder screening 656119336 Z13.29 TFTs ordered Long-term drug therapy 446104898 Z79.899 CBC and CMP due also on november labs Health Concerns Section Related Observation LastModified by Organization Detai ls LastModified Time None Recorded Concern Status LastModified by Organization Details LastModified Time None Recorded Advance Directives Directive None Recorded Payers Encounter Date Sequence Insurance Name Policy Number Policy Londono Covered Member ID Londono Member ID Guarantor Name 10/22/2022 1 [employer] [id number] Lizy Fishman [id number] Lizy Fishman Notes Date Note Type Note Provider Name and Address Organization Details Recorded Time 1 text/html HypertensionReported bypatient.Onset/Timing:bet ter Alleviating Factors:medication Self Care:not under emotional stress Associated Symptoms:no shortness of breath; no fatigue; no palpitations; no decline in exercise capacity; no snoringNotes:Reports doing well on Rx. Not Available [employer] 09/27/2020 20:07:11 1 text/html EaracheReported bypatient.Location:right Quality:dull Severity:continuous Duration:frequent Timing:worse Context:no sick contacts; no recent swimming/water in ear; no exposure to second hand smoke; no head trauma; not grinding teeth; no recent air travel Modifying Factors:does not hurt to lie on, or pull on ear; does not hurt to chew Associated Symptoms:no hearing loss; no discharge from the ears; no popping noise in the ears; no ringing in the ears; no fever; ears do not feel full; no swelling; no redness; no itching (pruritus); no ear bleeding;nose/sinus problems;vertigoNotes:Pres sure pain on the right side of her face, headache on right side as well. Also has growth on her throat Not Available [employer] 11/27/2020 22:41:42 2 text/html HypertensionReported bypatient.Duration:has noted for years Onset/Timing:better Alleviating Factors:medication Self Care:not under emotional stress Associated Symptoms:no shortness of breath; no fatigue; no palpitations; no decline in exercise capacity; no snoring Not Available [facility] 09/25/2021 21:38:35 3 text/html HyperlipidemiaReported bypatient.Duration:chronic Control:usually well controlled Compliance:compliant;nonco mpliant with diet;does not exercise(but active at work) Complications:no coronary artery disease; no peripheral artery disease; no cardiovascular disease Risk Factors:hypertensionHypert ensionReported bypatient.Duration:has noted for years Onset/Timing:better Alleviating Factors:medication Associated Symptoms:no shortness of breath; no fatigue; no palpitations; no decline in exercise capacity; no snoring Wellness JA Cardenas [address] [address], [place], [address], [facility] 10/25/2022 15:19:37 OBGyn Episode No OBEpisode recorded.
--- OUTSIDE RECORDS SUMMARY | 2024-08-21 08:34 | XMS_ITS | Clinical Summary ---
Author Organization [facility] Address [address] [place] [address] Care Team Providers Care Drywall Sprayer Name Role Phone Unavailable Primary Care Provider Unavailabl e Medications No known medications Family History Medical History Relation Name Comments Healthy Mother Relation Name Status Comments Father Mother Alive Social History Tobacco Use Types Packs/Day Years Used Date Smoking Tobacco: Never Alcohol Use Standard Drinks/Week Comments No 0 (1 standard drink = 0.6 oz pur e alcohol) Comments Unknown Sex and Gender Information Value Date Recorded Sex Assigned at Not on file Legal Sex Female 5:32 AM CLIENT SUPPORT CONSULTANT Gender Identity Not on file Sexual Orientation Not on file Last Filed Vital Signs Vital Sign Reading Time Taken Comments Blood Pressure 120/76 04/14/2010 1:41 PM CLIENT SUPPORT CONSULTANT Pulse - - Temperature - - Respiratory Rate - - Oxygen Saturation - - Inhaled Oxygen Concentration - - Weight 93.4 kg (206 lb) 04/14/2010 1:41 PM CLIENT SUPPORT CONSULTANT Height 170.2 cm (5' 7 ) 04/14/2010 1:41 PM CLIENT SUPPORT CONSULTANT Body Mass Index 32.26 04/14/2010 1:41 PM CLIENT SUPPORT CONSULTANT Plan of Treatment Health Maintenance Due Date Last Done Comments DTAP/TDAP/TD VACCINES (1 - Tdap) 08/15/1982 HPV/Cotest 08/15/1993 BREAST CANCER SCREENING 2003 COLORECTAL SCREENING 08/15/2008 Colorectal Cancer Screening 08/15/2008 FIT-DNA Q 3 years 08/15/2008 FIT/FOBT Q 1 year 08/15/2008 Flex Sig/CT Colonography Q 5 years 08/15/2008 CERVICAL CANCER SCREENING 04/14/2013 PAP SMEAR 04/14/2013 04/14/2010 PAP SMEAR 04/14/2013 04/14/2010 ZOSTER VACCINE (1 of 2) 08/15/2013 INFLUENZA VACCINE (#1) 2023 RSV VACCINE (60+ or ) (1 - 1-dose 75+ series) 08/15/2038 HEPATITIS B VACCINES Aged Out No long er eligible based on patient's age to complete this topic PNEUMOCOCCAL VACCINE 0-49 YEARS Aged Out No longer eligible based on patient's age to complete this topic Procedures Procedure Name Priority Date/Time Associated Diagnosis Comments CERV/VAG CYTOPATH, SUREPATH W/RFLX HPV Routine 04/14/2010 2:25 PM CLIENT SUPPORT CONSULTANT Routine gynecological examination from Last 3 Months or Most Recently Relevant to Health Maintenance Results * CERV/VAG CYTOPATH, SUREPATH W/RFLX HPV (04/14/2010 2:25 PM CLIENT SUPPORT CONSULTANT) REPORT STATUS FINAL [facility] CLINICAL INFORMATION [facility] Comment:Routine exam LAST MENSTRUAL PERIOD [facility] Comment:[id number] PREV PAP: [facility] Comment:Information not prov ided PREV BX: [facility] Comment:Information not prov ided SOURCE [facility] Comment:Endocervix ADEQUACY: [facility] Comment: Satisfactory for evaluation. Endocervical/transformation zone component present. GENERAL CATEGORIZATION: [facility] Comment:Other; see interpret ation/result INTERPRETATION [facility] Comment: Negative for intraepithelial lesion. Endometrial Cells identified in a woman 40 years of age or older. COMMENT [facility] Comment: The clinical significance of endometrial cells should be interpreted in the context of menstrual history and reproductive status. If out of phase of cycle or after menopause, this finding may be associated with normal functioning endometrium, benign endometrium with stromal breakdown, hormonal alterations and, less commonly, endometrial neoplasia. Clinical correlation is suggested. Based on the cytology result, reflex High Risk HPV DNA testing was not performed. INCREMENT MANAGER: [facility] Comment:HUMAIRA CANALES(ASCP) PATHOLOGIST [facility] Comment: Ken Gtz M.D., Board Certified in Anatomic Pathology and Cytopathology. ext. [phone] (electronic signature) Test Performed at: [facility] [place] [address] YOANA LOPEZ DO Endocervical 04/14/2010 2:25 PM CLIENT SUPPORT CONSULTANT Sabine Omalley MD PATHOLOGY/CYTOLOGY ORDERA BLES Final Result INTERFACE SYSTEM Refer to clinic/hospital department [facility] [address] [place] [id number] from Last 3 Months or Most Recently Relevant to Health Maintenance Insurance [employer] HMO
--- OUTSIDE RECORDS SUMMARY | 2024-08-21 08:34 | XMS_ITS | Clinical Summary ---
Author Organization [facility] Address [facility] [place] [address] Care Team Providers Care Rn Faculty Name Role Phone Ayanna Epps Primary Care Provider [phone] Allergies Active Allergy Reactions Criticality Noted Date Comments Codeine Unknown 05/25/2023 Medications lisinopril-hydr oCHLOROthiazide (ZESTORETIC) 20-12.5 MG tablet Take 1 tablet by mouth daily. 10/19/2022 Active buPROPion XL (WELLBUTRIN XL) 150 MG 24 hr tablet Take 1 tablet (150 mg total) by mouth every morning. 10/19/2022 Active rosuvastatin (CRESTOR) 5 MG tablet Take 1 tablet (5 mg total) by mouth nightly at bedtime. 12/21/2022 Active albuterol sulfate HFA 108 (90 Base) MCG/ACT inhaler Inhale 2 puffs into the lungs every 6 (six) hours as needed for Wheezing. Active Social History Tobacco Use Types Packs/Day Years Used Date Smoking Tobacco: Never Smokeless Tobacco: Never Tobacco Cessation:Counseling Given: Not Answered Alcohol Use Standard Drinks/Week Comments Not Currently 0 (1 standard drink = 0.6 oz pur e alcohol) Comments No Sex and Gender Information Value Date Recorded Sex Assigned at Not on file Legal Sex Female 7:57 PM CDT Gender Identity Not on file Sexual Orientation Not on file Last Filed Vital Signs Vital Sign Reading Time Taken Comments Blood Pressure 160/88 05/25/2023 12:02 PM KIDS ACTIVITIES COACH Pulse 87 05/25/2023 12:02 PM KIDS ACTIVITIES COACH Temperature 37.1 C (98.8 F) 05/25/2023 12:02 PM KIDS ACTIVITIES COACH Respiratory Rate 18 05/25/2023 12:02 PM KIDS ACTIVITIES COACH Oxygen Saturation 99% 05/25/2023 12:02 PM KIDS ACTIVITIES COACH Inhaled Oxygen Concentration - - Weight 91.6 kg (202 lb) 05/25/2023 12:02 PM KIDS ACTIVITIES COACH Height 167.6 cm (5' 6 ) 05/25/2023 12:02 PM KIDS ACTIVITIES COACH Body Mass Index 32.6 05/25/2023 12:02 PM KIDS ACTIVITIES COACH Plan of Treatment Health Maintenance Due Date Last Done Comments Cervical Cancer Screening Pa p Smear (Age 30 to 64) Every 3 Years 1963 Colorectal Cancer Screening Colonoscopy (10 Years) 1963 Annual Physical 08/15/1966 Hepatitis C 08/15/1981 DTaP, Tdap and Td Vaccines ( 1 - Tdap) 08/15/1982 Cervical Cancer Screening Pa p with HPV Testing (Age 30 to 64) Every 5 Years 08/15/1993 Cervical Cancer Screening with HPV 08/15/1993 Mammogram Screening 2003 Zoster Vaccines (1 of 2) 08/15/2013 COVID-19 Vaccine (2 - 2023-2 5 season) 2024 08/11/2020 Influenza Adult (#1) 2024 RSV Immunization or 60+ Years (1 - 1-dose 75+ series) 08/15/2038 Meningococcal B Vaccine Aged Out No l onger eligible based on patient's age to complete this topic Meningococcal Vaccine Aged Out No kelli quique eligible based on patient's age to complete this topic Pneumococcal Vaccine: Pediat rics (0 to 5 Years) and At-Risk Patients (6 to 64 Years) Aged Out No longer eligi ble based on patient's age to complete this topic RSV Immunizations Under 20 Months Aged Out No longer eligible based on patient's age to complete this topic Insurance [facility] Care Teams Rn Faculty Relationship Specialty Start Date End Date Ayanna Epps PA [address] [place] [address] PCP - General PHYSICIAN RELIABILITY ENGINEER 05/25/23
== END 2024-08-21 08:16 | disposition home or self-care (01) ==
PROVIDERS: PCP Physician Assistant; Visit Provider Physician Assistant
DX: R07.9 Chest pain, unspecified (principal)
CPT/HCPCS: 78452; 93017; A9502; J2785

== ENCOUNTER 2024-09-25 09:34 | Outpatient (CLI) | payer BC, SELFPAY ==
--- OUTSIDE RECORDS SUMMARY | 2024-09-25 10:28 | XMS_ITS | Data Portability ---
Author Organization [facility] Jamarcus Kessler Address [address] [place] [address] Care Team Providers Care Bingo Usher Name Role Phone KARIE CHEEMA Primary Care [...] available Not available Not available Lab HbA1c (hemog lobin A1c), blood 2024 025 [place] [employer] [facility], [address], [place], [address], 06/20/2024 15:48:41 CBC w/ auto diff 2024 025 [place] [employer] [facility], [address], [place], [address], 06/20/2024 15:49:04 CMP, serum or plasma 2024 025 [place] [employer] [facility], [address], [place], [address], 06/20/2024 15:48:30 lipid panel, serum 2024 025 [place] [employer] [facility], [address], [address], [place], [address], 06/20/2024 15:49:12 TSH + free T4, serum 2023 024 [place] [employer] [facility], [address], [address], [place], [address], 11/17/2023 09:35:44 CBC w/ auto diff 2023 024 [email or web address] [employer] [facility], [facility] [address], [address], [place], [address], 11/23/2023 12:35:57 CMP, serum or plasma 2023 024 [email or web address]] [employer] [facility], [facility], [address], [place], [address], 11/23/2023 12:36:01 vitami n B12 + folate , serum or blood 2023 024 [facility], [facility], [address], [place], [address], 11/17/2023 09:35:44 lipid panel, serum 2023 024 [facility] [[email or web address]] [employer] [facility], [address], [address], [place], [address], 11/23/2023 12:35:48 HbA1c (hemog lobin A1c), blood 2023 024 [facility] [[email or web address]] [employer] [facility], [address], [address], [place], [address], 11/23/2023 12:36:06 Referral None record ed. Procedures lexisc an cardio lite stress test (PROC) - Per availi ty, auth not requir ed. Copy attach ed. Ref #[id number] 2024 025 [facility] ([facility]), [address], [place], [address], 08/21/2024 16:10:47 Surgeries None record ed. Imaging XR, chest, 2 view 2024 [facility], [address], [place], [address], 08/14/2024 14:36:08 electr ocardi ogram 2024 [place] In-Office Order, Internal Use Only DO Not Attach Compendium DO Not Attach Compendium, Do Not Delete/merge, [id number] 08/14/2024 17:06:13 MRI, brain, w/wo contra st 2024 025 [facility], [address], [place], [address], 2024 18:57:01 XR, hip, unilat eral, 2 or 3 view 2024 025 [facility], [address], [address], [place], [address], 08/21/2024 15:51:08 XR, lumbar spine 2024 025 [facility], [address], [address], [place], [address], 08/21/2024 15:51:24 Medication Orders nitrog lyceri n 0.4 mg sublin gual tablet 2024 025 [email or web address] [id number], [address] [place], [address], 09/20/2024 14:57:14 Contra ve 8 mg-90 mg tablet ,exten ded releas e 2024 025 [id number], [address] [place], [address], 08/21/2024 18:09:41 rosuva statin 5 mg tablet 2023 024 [id number], [address] [place], [address], 11/11/2023 14:41:09 buprop ion HCl XL 150 mg 24 hr tablet , extend ed releas e 2023 025 [id number], [address] [place], [address], 06/08/2024 09:03:57 lisino pril 20 mg-hyd rochlo rothia zide 12.5 mg tablet 2023 024 [id number] [address] [place], [address], 06/08/2024 09:02:49 Wegovy 0.25 mg/0.5 mL subcut aneous pen inject or 2023 024 [id number], [address] [place], [address], 11/15/2023 10:09:17 Patient TargetsNo targets recorded. Patient Instructions Encounter Date Encounter Id Patient Instructions Last Modified By Organization Details Last Modified Time 11/11/2023 [id number] A healthy lifestyle: care instructions Not available 11/11/2023 14:41:05 06/08/2024 [id number] A healthy lifestyle: care instructions Not available 06/08/2024 09:19:50 08/14/2024 [id number] A healthy lifestyle: care instructions Not available 08/14/2024 11:15:37 Reason for Referral None Reported. Results Created Date Observation Date Name Description Value Unit Range Abnormal Flag Note LastModifiedBy Organization Detail LastModifiedTime 08/15/19 25 08/19/2024 michelle reynaga am No observ ation record ed. [facility] In-Office Order Internal Use Only DO Not Attach Compendium DO Not Attach Compendium, Do Not Delete/merge, [id number] 08/19/2024 13:15:26 08/15/19 25 08/14/2024 XR, chest , 2 view No observ ation record ed. [facility] [address], [place], [address], 08/25/2024 16:06:10 08/17/19 25 08/15/2024 MRI, brain , w/wo contr ast No observ ation record ed. [facility] [address], [place], [address], 08/30/2024 12:32:02 08/22/19 25 08/21/2024 brendan can cardi olite stres s test (PROC ) No observ ation record ed. [address], [place], [address], 08/25/2024 00:15:21 08/22/19 25 08/21/2024 brendan can cardi olite stres s test (PROC ) No observ ation record ed. [facility]) [address] [place] [address] [address], [place], [address], 08/25/2024 00:15:22 Result Notes None recorded. Problems Name Problem SNOMED Code Status Onset Date Resolution Date Notes Provider Name and Address Organization Details Recorded Time Hyperlipide prasanth 38719253 Active 2023 JA Cardenas Attn: Robbie li,[address] [facility], [place], [address], [facility] 5 15:04:01 Benign essential hypertensio n 2278753 Active 2023 JA Cardenas Attn: Robbie li,[address] [place], [address], [place] [facility] 4 14:27:46 Body mass index 30+ - obesity 463907381 Active 2023 JA Cardenas Attn: Accountin g,[address] [place], [address], [place] [facility] 5 15:00:04 Obesity 200017869 Active 2023 JA Cardenas Attn: Accountin g,[address] [place], [address], [place] [facility] 4 14:27:55 Long-term drug therapy Active 2023 JA Cardenas Attn: Accountalonso g,[address] [place], [address], [place] [facility] 4 14:27:57 Menopausal syndrome 873051090 Active 2023 JA Cardenas Attn: Accountalonso g,[address] [place], [address], [place] [facility] 4 17:07:53 Prediabetes 312347383 Active 2024 JA Cardenas Attn: Accountalonso g,[address] [place], [address], [place] [facility] 5 15:04:02 Parietal headache 197685949 Active 2024 JA Cardenas Attn: Accountalonso g,[address] [place], [address], [place] [facility] 5 11:45:37 History of meningioma 3492016001347 Active 2024 JA Cardenas Attn: Accountalonso g,[address] [place], [address], [place] [facility] 5 11:45:40 Degeneratio n of lumbar interverteb ral disc 24298019 Active 2024 JA Cardenas Attn: Robbie g,[address], [place], [address], [facility] 5 15:04:04 Pain of right hip joint 1761132818716 02 Active 2024 JA Cardenas Attn: Robbie g,[address], [place], [address], [facility] 5 15:04:05 Chest pain 22970195 Active 2024 JA Cardenas Attn: Robbie g,[address] [facility], [place], [address], [facility] 5 15:04:06 Problem Notes None recorded. Procedures Surgical History Date Name Laterality Status Provider Name and Address Organization Details Recorded Time Hernia Repair completed Maira Sanchez MA [facility] 11/11/2023 16:04:36 section completed Maira Sanchez MA [facility] 11/11/2023 16:04:45 laparoscopy completed Maira Sanchez MA [facility] 11/11/2023 16:04:56 Imaging Results Imaging Date Name Status LastModified by Organization Details LastModified Time 08/19/2024 electrocardiogram completed [place] In-Off ce Order Internal Use Only DO Not Attach Compendium DO Not Attach Compendium, Do Not Delete/merge, [id number] 08/19/2024 13:15:26 08/14/2024 XR, chest, 2 view completed Counts include [facility] beds at the [facility] [address], [place], [address], 08/25/2024 16:06:10 08/15/2024 MRI, brain, w/wo contrast completed [facility] [address], [place], [address], 08/30/2024 12:32:02 08/21/2024 lexiscan cardiolite stress test (PROC) completed [facility] [address], [place], [address], 08/25/2024 00:15:21 08/21/2024 lexiscan cardiolite stress test (PROC) completed [facility]) [address], [place], [address], 08/25/2024 00:15:22 Procedure Notes None recorded. Medical Equipment None Reported. Allergies No known drug allergies Medications Name Sig Start Date Stop Date Status Note LastModified by Organization Details LastModified Time lisinopril 20 mg-hydroch lorothiazi de 12.5 mg tablet TAKE 1 TABLET BY MOUTH EVERY DAY active Not Available Not Available No t Available fluconazol e 150 mg tablet TAKE [...] completed Not Available Not Available Not Available omeprazole 40 mg capsule,de layed release Take 1 capsule every day by oral route. 2024 active Not Available Not Available Not Avai lable tramadol 50 mg tablet Take 1 tablet every 6 hours by oral route as needed, for hip pain. 2024 active Not Available Not Available Not Avai lable benzonatat e 100 mg capsule TAKE 1 CAPSULE BY MOUTH THREE TIMES A DAY NEEDED FOR COUGH 11/10 completed Not Available Not Available Not Available nitroglyce rin 0.4 mg sublingual tablet TAKE 1 TAB DIRECTED SUBLINGUA L AT ONSET OF CHEST PAIN MAY REPEAT IN 5 MINUTES 2024 active Not Available Not Available Not Avai lable lisinopril 10 mg-hydroch lorothiazi de 12.5 mg tablet TAKE [...] ble Not Available Contrave 8 mg-90 mg tablet,ext ended release Week 1: take one tab po AMWeek 2: take one tab po bidWeek 3: take two tablets po AM, and one tab po PMWeek 4 and after: take two tabs po bid 08/21 completed Not Available Not Available Not Available Lumify 0.025 % eye drops Apply 1 mL twice a day by ophthalmi c route. active blink Not Available Not Available No t Available Proair Digihaler 90 mcg/actuat ion aerosol powder breath act, sensor INHALE 2 PUFFS EVERY 4 HOURS BY INHALATIO N ROUTE NEEDED active Not Available Not Available No t Available Wegovy 0.25 mg/0.5 mL subcutaneo us pen injector INJECT 0.25 MG EVERY WEEK [...] Updated DateTime 4 167.64 cm 33.7 kg/m2 71278.7 3 g 20 /min 96 % 96 % 68 /min 126 mm[Hg] 82 mm[Hg] Denisse Dennis MA [facility] 4 14:13:39 Date Recorded Systolic blood pressure Diastolic blood pressure Provider Name and Address Organization Details Last Updated DateTime 11/11/2023 132 mm[Hg] 80 mm[Hg] JA Cardenas Attn: Accounting,[address] [place], [address], [facility] 11/11/2023 14:36:37 Date Recorded Body height Body mass index (BMI) Body weight Respiratory rate Oxygen saturation Oxygen saturation in Arterial blood by Pulse oximetry Heart rate Systolic blood pressure Diastolic blood pressure Provider Name and Address Organization Details Last Updated DateTime 5 167.64 cm 34.7 kg/m2 15632.3 6 g 20 /min 96 % 96 % 60 /min 136 mm[Hg] 82 mm[Hg] Denisse Dennis MA [facility] 5 09:09:38 Date Recorded Systolic blood pressure Diastolic blood pressure Systolic blood pressure Diastolic blood pressure Provider Name and Address Organization Details Last Updated DateTime 06/08/2024 140 mm[Hg] 80 mm[Hg] 132 mm[Hg] 82 mm[Hg] JA Cardenas Attn: Accounting ,[address] [place], [address] , [facility] 5 09:26:05 Date Recorded Body height Body mass index (BMI) Body weight Oxygen saturation Oxygen saturation in Arterial blood by Pulse oximetry Heart rate Systolic blood pressure Diastolic blood pressure Provider Name and Address Organization Details Last Updated DateTime 167.64 cm 34.4 kg/m2 51113.1 7 g 97 % 97 % 63 /min 128 mm[Hg] 82 mm[Hg] Denisse Dennis MA [facility] 5 10:57:54 Date Recorded Body height Body mass index (BMI) Body weight Respiratory rate Oxygen saturation Oxygen saturation in Arterial blood by Pulse oximetry Heart rate Systolic blood pressure Diastolic blood pressure Provider Name and Address Organization Details Last Updated DateTime 167.64 cm 34.9 kg/m2 29359.9 5 g 20 /min 97 % 97 % 67 /min 126 mm[Hg] 82 mm[Hg] Denisse Dennis MA [facility] 5 14:37:08 Date Recorded Systolic blood pressure Diastolic blood pressure Provider Name and Address Organization Details Last Updated DateTime 09/20/2024 140 mm[Hg] 80 mm[Hg] JA Cardenas Attn: Accounting[address] [place], [address], [facility] 09/20/2024 15:07:19 Social History Question Answer Notes LastModified by Organizat ion Details LastModified Time Tobacco Smoking Status Never Smoker Denisse Dennis MA null, [facility] 11/11/2023 14:09:10 Do You Have An [...] Date Of Your Most Recent Tobacco Screening? 09/20/2024 Information not available 09/20/2024 Do You Use Your Seat Belt Or [...] What Date Was Tobacco Cessation Counseling Provided? 09/20/2024 Information not available 09/20/2024 Do You Or Have You Ever Used [...] LastModified by Organization Details LastModified Time Father Harmful pattern of use of alcohol apaytonma Not available 2023 16:05:10 Brother Harmful pattern of use of alcohol apaytonma Not available 2023 16:05:10 Brother Heart disease apaytonma Not available 2023 16:05:20 Brother Hypertensive disorder apaytonma Not available 2023 16:05:34 Mother Heart disease apaytonma Not available 2023 16:05:20 Mother Hypercholest erolemia apaytonma Not available 2023 16:05:25 Mother Hypertensive disorder apaytonma Not available 2023 16:05:34 Mother Malignant neoplasm of lung apaytonma Not available 2023 16:05:48 Medical History Condition Response Other Y High Blood Pressure Y Acid Reflux (GERD) Y High Cholesterol Y Asthma Y Gynecological History Statement/Question Response Menses Monthly N Current Control Method Other Obstetrics History GPAL:G 2 P 2 0 0 2 Type Value Full Term 2 Induced 0 Spontaneous 0 Premature 0 Living 2 Total 2 Immunizations Vaccine Type Date Status Note Provider Nam e and Address Organization Details Recorded Time COVID-19 vaccine, vector-nr, rS-Ad26, PF, 0.5 mL 08/11/2020 completed Denisse Dennis MA [facility], [place] - [facility] 06/07/2024 09:11:56 Past Encounters Encounter ID Performer Location Encounter Start Date Encounter Closed Date Diagnosis/Indication Diagnosis SNOMED-CT Code Diagnosis ICD10 Code Diagnosis Note [id number] JA Cardenas [facility] [place] [address] [place] [address] 11/11/2023 14:01:28 11/11/2023 14:46:47 Body mass index 30+ - obesity 834873269 Z68.33 start wegovy injectable therapy. no personal or family hx of Medullary thyroid cancer or MEN conditions . Obesity 303892692 E66.8 discussed healthy diet, exercise, controllin g carbohydra herbie and added sugars in the diet Adult [facility] examination 982310765 Z00.01 wellness exam completed Benign ess ential hypertension 5238469 I10 refill on lisinopril hctz 20/12.5mg daily. Hyperlipidemia 48116856 E78.5 refill rosuvastat in 5mg daily. due for fasting lipids. Long-term drug therapy 268627718 Z79.899 cmp, cbc and b12, folate labs are due Diabetes m ellitus screening 994625385 Z13.1 a1c screening due Thyroid di sorder screening 074277015 Z13.29 thyroid panel due. Menopausal syndrome 1237 57245 N95.9 refill on wellbutrin XL 150mg daily. [id number] JA Cardenas [facility] [employer] [address] [place] [address] 06/08/2024 08:57:10 06/08/2024 11:48:26 Hyperlipidemia 18889505 E78.5 Stable on rosuvastat in 5mg daily. due for fasting lipids. Last LDL was slightly elevated at 119. Benign ess ential hypertension 3383216 I10 Blood pressure is stable on lisinopril hctz 20/12.5mg daily. 130/82 today Menopausal syndrome 1237 53798 N95.9 Patient does have ongoing menopausal flushes Body mass index 30+ - obesity 008308590 Z68.33 BMI is 34.7. Per patient request she will restart contrave therapy. Obesity 024499979 E66.9 discussed healthy diet, exercise, controllin g carbohydra herbie and added sugars in the diet Long-term drug therapy 898872745 Z79.899 cmp, cbc do Prediabetes 119970518 R7 3.03 6.1% A1c on October labs, she is due for updated A1c [id number] [facility] [employer] [address] [employer] [address] 08/14/2024 10:47:44 08/14/2024 12:05:53 Body mass index 30+ - obesity 483754083 Z68.33 BMI is 34.7. Per patient request she will restart contrave therapy. Obesity 154024401 E66.9 discussed healthy diet, exercise, controllin g carbohydra herbie and added sugars in the diet Pain of ri ght hip joint 5218897945 25158 M25.551 Check x-ray of the right hip and lumbar spine Chest pain 53584117 R07. 9 Abnormal EKG in the office showing possible inferior infarct with likely ischemia. Refer for BRADLEY Lexiscan stress testing as she is not able to do the treadmill due to right hip pain that is also being evaluated. She has an upcoming trip to [place] next week we need to get cardiac evaluation as soon as possible. Prescripti on for nitroglyce rin sublingual given. Also send for chest x-ray Parietal headache 505762 002 R51.9 MRI as ordered above History of meningioma 11 Z86.018 History of right-side d meningioma of the brain. Now with increase in headaches. Refer for MRI brain with and without contrast Electrocar diogram abnormal 251288234 R94.31 Possible inferior infarct and signs of ischemia [id number] [facility] [place] [address] [place] [address] 09/20/2024 14:26:50 09/20/2024 16:07:45 Obesity 645369989 E66.9 discussed healthy diet, exercise, controllin g carbohydra herbie and added sugars in the diet Chest pain 44722815 R07. 9 still having symptoms, ?? if this is esophageal . upper gI ordered Pain of ri ght hip joint 8269147686 24478 M25.551 History of meningioma 11 Z86.018 History of right-side d meningioma of the brain. Intermitte nt dysphagia 87454396 R13.19 Body mass index 30+ - obesity 924189850 Z68.34 BMI is 34.7. Per patient request she will restart contrave therapy. Degenerati on of lumbar intervertebral disc 20857798 M51.360 Prediabetes 891142947 R7 3.03 6% A1c Hyperlipidemia 61199570 E78.5 Stable on rosuvastat in 5mg daily. Positive s creening for depression on PHQ-9 (Patient Health Questionnaire 9) 2171167134 01899 Z13.31 Health Concerns Section Related Observation LastModified by Organization Detai ls LastModified Time None Recorded Concern Status LastModified by Organization Details LastModified Time None Recorded Advance Directives Directive N: Payers Encounter Date Sequence Insurance Name Policy Number Policy Londono Covered Member ID Londono Member ID Guarantor Name 11/11/2023 1 [place] [id number] Lizy Fishman [id number] Lizy Fishman 06/08/2024 1 [place] [id number] Lizy Fishman [id number] Lizy Fishman 08/14/2024 1 [place] [id number] Lizy Fishman [id number] Lizy Fishman Notes Date Note Type Note Provider Name and Address Organization Details Recorded Time 4 text/html HyperlipidemiaReported bypatient.Notes:pt is stable on rosuvastatin 5mg daily. due for labs.HypertensionReported bypatient.Notes:pt is on lisinopril 20/hctz 12.5mg daily Menopausal: on bupropion XL 150mg daily to help manage hot flashes. JA Cardenas Attn: Accounting,[address] [place], [address], [facility] 12/02/2023 17:08:52 5 text/html HyperlipidemiaReported bypatient.Notes:pt is stable on rosuvastatin 5mg daily. due for labs.HypertensionReported bypatient.Notes:pt is on lisinopril 20/hctz 12.5mg daily Menopausal: on bupropion XL 150mg daily to help manage hot flashes. JA Cardenas Attn: Accounting,[address] [place], [address], [facility] 06/29/2024 08:25:14 5 text/html Angina/Chest PainReported bypatient.Location:middle [...] weakness; no numbness JA Cardenas Attn: Accounting,[address] [place], [address], [facility] - [facility] 08/14/2024 11:46:31 OBGyn Episode No OBEpisode recorded.
--- OUTSIDE RECORDS SUMMARY | 2024-09-25 10:29 | XMS_ITS | Clinical Summary ---
Author Organization [facility] Address [facility] [address] [place] [address] Care Team Providers Care Therapy Manager Name Role Phone Ayanna Epps Primary Care Provider Allergies Active Allergy Reactions Criticality Noted Date [...] Comments Blood Pressure 160/88 05/25/2023 12:02 PM [facility]ERER [facility] Pulse 87 05/25/2023 12:02 PM [facility] Temperature 37.1 C (98.8 F) 05/25/2023 12:02 PM [facility]ERER HAND Respiratory Rate 18 05/25/2023 12:02 PM [facility] Oxygen Saturation 99% 05/25/2023 12:02 PM [facility]ER[facility] HAND Inhaled Oxygen Concentration - - Weight 91.6 kg (202 lb) 05/25/2023 12:02 PM CHECKERER HAND Height 167.6 cm (5' 6 ) 05/25/2023 12:02 PM CHECKERER HAND Body Mass Index 32.6 05/25/2023 12:02 PM CHECKERER HAND Plan of Treatment Health Maintenance Due Date [...] Screening with HPV 08/15/1993 Mammogram Screening 2003 Pneumococcal Vaccine: 50+ Ye ars (1 of 1 - PCV) 08/15/2013 Zoster Vaccines (1 of 2) 08/15/2013 COVID-19 Vaccine (2 - 2023-2 5 season) 2024 08/11/2020 RSV Immunization or 60+ Years (1 - 1-dose 75+ series) 08/15/2038 Meningococcal B Vaccine Aged Out No l onger eligible based on patient's age to complete this topic Meningococcal Vaccine Aged Out No kelli quique eligible based on patient's age to complete this topic RSV Immunizations Under 20 Months Aged Out No longer eligible based on patient's age to complete this topic Insurance [place] [id number] Care Teams Therapy Manager Relationship Specialty Start Date End Date Ayanna Epps PA [address] [facility] [place] [address] PCP - General PHYSICIAN STRAP CUTTER 05/25/23
--- OUTSIDE RECORDS SUMMARY | 2024-09-25 10:29 | XMS_ITS | Data Portability ---
Author Organization [facility], Main Office Address [address] [place] [address] Assessment No assessment recorded. Plan of Treatment Reminders Order Date Submit Date Provider Last Modified By Organization Details Last Modified Time Details Appointments None recorded . Lab TSH, serum or plasma 023 12/01/19 23 [email or web address], [address], [place], [address], 3 14:07:58 T4, free, serum 023 12/01/19 23 [email or web address], [address], [place], [address], 3 14:07:58 CMP, serum or plasma 023 12/01/19 23 [email or web address], [address], [place], [address], 3 14:07:57 CBC w/ auto diff 023 12/01/19 23 [email or web address], [address], [place], [address], 3 14:07:57 HbA1c (hemoglo bin A1c), blood 023 12/01/19 23 [email or web address], [address], [place], [address], 3 14:07:58 lipid panel, serum 023 12/01/19 23 [email or web address], [address], [place], [address], 3 14:07:58 Referral None recorded . Procedures [...] r (CRC) or advan alina adeno ma (raafel omato us polyp s with more advan [...] of 10,00 0 indiv idual s at [facility] risk for color ectal cance r [...] asymp tomat ic indiv idual s at [facility] risk for color ectal cance r. [...] 112:1 016-1 030. TEST DESCR IPTIO N: [place] site algor ithmi c annemarie sis of [...] years or older , who are at [facility] for color ectal cance r (CRC) . Colog uard has been appro miriam for use by the [place] FDA. The perfo rmanc e of Colog uard was estab lishe d in a cross secti onal study of [facility] adult s aged 50-84 . Colog [...] of ,00 0 indiv idual s at [facility] risk for color ectal cance r [...] at www.c flou melchor.c om. Not Available [facility] (Cologuard Orders Only) [address], [place], [address], 11/19/2021 00:55:54 Result Notes None recorded. Problems Name Problem SNOMED Code Status Onset Date Resolution Date Notes Provider Name and Address Organization Details Recorded Time Benign essential hypertension 3544482 Active 2019 Not Available [facility] 3 19:48:56 Menopausal flushing 027940104 Active 2021 Not Available [facility] 3 19:48:56 Menopausal symptom 00285873 Active 2021 Not Available [facility] 3 19:48:56 Infection of tooth 972396993 Active 2021 Not Available [facility] 3 19:48:56 Hyperlipidemi a 60015836 Active 2021 Ramona Martin, RMA null, [facility] [employer] [facility] 3 14:55:40 Weight gain 0764998 Active 2021 Not Available [facility] 3 19:48:56 Asthma 980781094 Active 2022 JA Cardenas [address], [address], [place], [address] , [employer] [facility] 3 14:33:48 Acute urinary tract infection 277911910 Active 2023 JA Cardenas [address], [address], [place], [address] , [employer] [facility] 4 17:27:22 Postviral cough 051483922 Active 2023 JA Cardenas [address], [address], [place], [address] , [facility] 4 17:11:30 Problem Notes None recorded. Procedures Surgical History Date Name Laterality Status Provider Name and Address Organization Details Recorded Time 06/12/19 21 Date of Last Colonoscopy completed Not Available [facility] 07/29/2022 19:48:13 11/11/19 18 hysteroscopy completed Not Available [facility] 023 19:48:14 10/30/19 18 endometrial ablation completed Not Available [facility] 07/29/2022 19:48:14 05/31/19 05 Brain Surgery completed Not Available [facility] 2022 19:48:14 05/31/18 99 section completed Not Available [facility] 05/2022 19:48:14 05/31/18 87 section completed Not Available [facility] 05/2022 19:48:14 05/31/18 86 laparoscopy completed Not Available [facility] 03/01/20 23 19:48:14 Cyst Removal completed Not [...] % 64 /min 16 /min 97.8 [degF] 65963.4 g 130 mm[Hg] 66 mm[Hg] Not Available [facility] 3 19:48:42 Date Recorded Body mass index (BMI) Body height Oxygen saturation Oxygen saturation in Arterial blood by Pulse oximetry Heart rate Body temperature Body weight Systolic blood pressure Diastolic blood pressure Provider Name and Address Organization Details Last Updated DateTime 1 34.3 kg/m2 165.1 cm 98 % 98 % 65 /min 97.7 [degF] 81398.0 3 g 120 mm[Hg] 80 mm[Hg] Not Available [facility] 3 19:48:42 Date Recorded Body mass index (BMI) Body height Oxygen saturation Oxygen saturation in Arterial blood by Pulse oximetry Heart rate Respiratory rate Body temperature Body weight Systolic blood pressure Diastolic blood pressure Provider Name and Address Organization Details Last Updated DateTime 2 34.5 kg/m2 165.1 cm 96 % 96 % 95 /min 16 /min 97.1 [degF] 00198.7 8 g 122 mm[Hg] 80 mm[Hg] Not Available [facility] 3 19:48:43 Date Recorded Body height Body temperature Body mass index (BMI) Body weight Respiratory rate Oxygen saturation Oxygen saturation in Arterial blood by Pulse oximetry Heart rate Systolic blood pressure Diastolic blood pressure Provider Name and Address Organization Details Last Updated DateTime 3 165.1 cm 97.5 [degF] 35.3 kg/m2 25834.5 8 g 16 /min 98 % 98 % 67 /min 120 mm[Hg] 72 mm[Hg] CELIA Martino [place] - [facility] 3 11:01:00 Social History Question Answer Notes LastModified by Organizat ion Details LastModified Time Tobacco Smoking Status Never Smoker Not Available [facility] 07/29/2022 19:48:07 What Is Your Level Of Alcohol Consumption? Occasional [id number].[id number] Information not available 07/29/2022 What Is Your Level Of Caffeine Consumption? Moderate MIGRATION.[id number] Information not available 07/29/2022 How Much Tobacco Do You Chew? None MIGRATION.[id number] Information not available 07/29/2022 In The 14 Days Before Symptom Onset, Have You Had Close Contact With A Laboratory-confir med COVID-19 While That Case Was Ill? No MIGRATION.[id number] 6025 Information not available 07/29/2022 In The 14 Days Before Symptom Onset, Have You Had Close Contact With A Person Who Is Under Investigation For COVID-19 While That Person Was Ill? No MIGRATION.[id number] Information not available 07/29/2022 Are You Currently Employed? Yes Information not available 10/21/2022 What Type Of Diet Are You Following? REGULAR [id number].[id number] 3543 Information not available 07/29/2022 Which Illicit Or Recreational Drugs Have You Used? None MIGRATION.273233 6414 Information not available 07/29/2022 Do You Or Have You Ever Used E-cigarettes Or Vape? 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 No MIGRATION.250394 5351 Information not available 07/29/2022 Are There Any Guns Present In Your Home? No MIGRATION.241805 9684 Information not available 07/29/2022 Do You Use Insect Repellent Routinely? No [email or web address] Information not available 10/21/2022 What Was The Date Of Your Most Recent Tobacco Screening? 09/16/2020 MIGRATION.[id number] 9562 Information not available 07/29/2022 What Is Your Relationship Status? MIGRATION.549486 5654 Information not available 07/29/2022 Do You Use Your Seat Belt Or Car Seat Routinely? Yes MIGRATION.110805 7066 Information not available 07/29/2022 Do You Have Smoke And Carbon Monoxide Detectors In Your Home? Yes MIGRATION.654262 3544 Information not available 07/29/2022 Do You Or Have You Ever Used Smokeless Tobacco? Never Used Smokeless Tobacco MIGRATION.430447 4454 Information not available 07/29/2022 How Much Tobacco Do You Smoke? No MIGRATION.857739 5192 Information not available 07/29/2022 Do You Use Any Illicit Or Recreational Drugs? No MIGRATION.188179 1666 Information not available 07/29/2022 Do You Use Sunscreen Routinely? Yes [email or web address] Information not available 10/21/2022 How Many Years Have You Smoked Tobacco? 0 MIGRATION.114735 8783 Information not available 07/29/2022 Have You Recently Traveled Abroad? No MIGRATION.017360 3225 Information not available 07/29/2022 Do You Have Any Dietary Restrictions? No MIGRATION.387196 7899 Information not available 07/29/2022 Do You Or Have You Ever Used Any Other Forms Of Tobacco Or Nicotine? No MIGRATION.090835 6251 Information not available 07/29/2022 Sex: Unknown Functional Status Question Answer Note LastModified by Organizat ion Details LastModified Time What is your exercise level? Moderate [id number].[id number] Information not available 07/29/2022 Mental Status None recorded. Family History Relationship Description Onset Age of this Age Resolved Age Notes LastModified by Organization Details LastModified Time Mother Malignant neoplasm of lung [id number] Not available 07/29/2022 19:48:14 Medical History Condition Response EYE PROBLEMS Y HEARTBURN / REFLUX Y ASTHMA Y HYPERTENSION Y Gynecological History Statement/Question Response Date of Last Mammogram 10/07/2017 Date of Last Colonoscopy 06/12/2020 Sexually Active? Y Obstetrics History GPAL:G 2 P 0 0 0 2 Type Value Living 2 Total 2 Past Encounters Encounter ID Performer Location Encounter Start Date Encounter Closed Date Diagnosis/Indication Diagnosis SNOMED-CT Code Diagnosis ICD10 Code Diagnosis Note [id number] [facility] [address] [place] [address] 09/16/2020 00:00:00 09/27/2020 20:07:11 [id number] [facility] [address] [place] [address] 11/12/2020 00:00:00 11/27/2020 22:41:42 [id number] [facility] [place] [address] [place] [address] 09/24/2021 00:00:00 09/25/2021 21:38:35 [id number] JA Cardenas [facility] [address] [place] [address] 10/22/2022 10:39:04 10/22/2022 11:36:30 Adult health examination 540118080 Z00.01 well exam completed Benign ess ential hypertension 5479938 I10 stable on lisinopril hctz 20/12.5mg daily. Hyperlipidemia 02847730 E78.5 stable on crestor 5mg daily. repeat labs in November (pt prefers november when her insurance changes and will be better coverage). Diabetes m ellitus screening 185696795 Z13.1 screening A1c due in november. Thyroid di sorder screening 911693003 Z13.29 TFTs ordered Long-term drug therapy 468219733 Z79.899 CBC and CMP due also on november labs Health Concerns Section Related Observation LastModified by Organization Detai ls LastModified Time None Recorded Concern Status LastModified by Organization Details LastModified Time None Recorded Advance Directives Directive None Recorded Payers Encounter Date Sequence Insurance Name Policy Number Policy Londono Covered Member ID Londono Member ID Guarantor Name 10/22/2022 1 [employer] [id number] Lizy Fishman [id number] Lizy Fishman Notes Date Note Type Note Provider Name and Address Organization Details Recorded Time 1 text/html HypertensionReported bypatient.Onset/Timing:bet ter Alleviating Factors:medication Self Care:not under emotional stress Associated Symptoms:no shortness of breath; no fatigue; no palpitations; no decline in exercise capacity; no snoringNotes:Reports doing well on Rx. Not Available [facility] 09/27/2020 20:07:11 1 text/html EaracheReported bypatient.Location:right Quality:dull [...] has growth on her throat Not Available [facility] 11/27/2020 22:41:42 2 text/html HypertensionReported bypatient.Duration:has noted for years Onset/Timing:better Alleviating Factors:medication Self Care:not under emotional stress Associated Symptoms:no shortness of breath; no fatigue; no palpitations; no decline in exercise capacity; no snoring Not Available [facility] 09/25/2021 21:38:35 3 text/html HyperlipidemiaReported bypatient.Duration:chronic Control:usually well controlled Compliance:compliant;nonco mpliant with diet;does not exercise(but active at work) Complications:no coronary artery disease; no peripheral artery disease; no cardiovascular disease Risk Factors:hypertensionHypert ensionReported bypatient.Duration:has noted for years Onset/Timing:better Alleviating Factors:medication Associated Symptoms:no shortness of breath; no fatigue; no palpitations; no decline in exercise capacity; no snoring Wellness JA Cardenas [address] [address], [place], [address], [facility] 10/25/2022 15:19:37 OBGyn Episode No OBEpisode recorded.
--- OUTSIDE RECORDS SUMMARY | 2024-09-25 10:29 | XMS_ITS | Clinical Summary ---
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 Gender Identity Not on file Sexual Orientation Not on file Last Filed Vital Signs Vital Sign Reading Time Taken Comments Blood Pressure 120/76 04/14/2010 1:41 PM [employer]IGE GOODS INSPECTOR Pulse - - Temperature - - Respiratory Rate - - Oxygen Saturation - - Inhaled Oxygen Concentration - - Weight 93.4 kg (206 lb) 04/14/2010 1:41 PM GRE[employer]E GOODS INSPECTOR Height 170.2 cm (5' 7 ) 04/14/2010 1:41 PM GRE[employer]E GOODS INSPECTOR Body Mass Index 32.26 04/14/2010 1:41 PM GRE[employer]E GOODS INSPECTOR Plan of Treatment Health Maintenance Due Date Last Done Comments DTAP/TDAP/TD VACCINES (1 - Tdap) 08/15/1982 HPV/Cotest (21-29) 08/15/1984 HPV/Cotest (30-65) 08/15/1993 BREAST CANCER SCREENING 2003 COLORECTAL SCREENING 08/15/2008 Colorectal Cancer Screening 08/15/2008 FIT-DNA Q 3 years 08/15/2008 FIT/FOBT Q 1 year 08/15/2008 Flex Sig/CT Colonography Q 5 years 08/15/2008 CERVICAL CANCER SCREENING 04/14/2013 PAP SMEAR 04/14/2013 04/14/2010 ZOSTER VACCINE (1 of 2) 08/15/2013 INFLUENZA VACCINE (#1) 2023 RSV VACCINE (60+ or ) (1 - 1-dose 75+ series) 08/15/2038 Procedures Procedure Name Priority Date/Time Associated Diagnosis Comments CERV/VAG CYTOPATH, SUREPATH W/RFLX HPV Routine 04/14/2010 2:25 PM GREIGE GOODS INSPECTOR Routine gynecological examination from Last 3 Months or Most Recently Relevant to Health Maintenance Results * CERV/VAG CYTOPATH, SUREPATH W/RFLX HPV (04/14/2010 2:25 PM GREIGE GOODS INSPECTOR) REPORT STATUS FINAL [facility] CLINICAL INFORMATION [facility] Comment:Routine exam LAST MENSTRUAL PERIOD [facility] Comment:[id number] PREV PAP: [facility] Comment:Information not prov ided PREV BX: [facility] Comment:Information not prov ided SOURCE [facility] Comment:Endocervix ADEQUACY: [facility] Comment: Satisfactory for evaluation. Endocervical/transformation zone component present. GENERAL CATEGORIZATION: [facility] Comment:Other; see interpret ation/result INTERPRETATION [facility] Comment: Negative for intraepithelial lesion. Endometrial Cells identified in a woman 40 years of age or older. COMMENT [facility] Comment: The clinical significance of endometrial cells [...] Risk HPV DNA testing was not performed. MILK PASTEURIZER: [facility] Comment:HUMAIRA CANALES(ASCP) PATHOLOGIST [facility] Comment: Ken Gtz M.D., Board Certified in Anatomic Pathology and Cytopathology. ext. [phone] (electronic signature) Test Performed at: [facility] [address] [place] [address] YOANA LOPEZ DO Endocervical 04/14/2010 2:25 PM GREIGE GOODS INSPECTOR Sabine Omalley MD PATHOLOGY/CYTOLOGY ORDERA BLES Final Result INTERFACE SYSTEM Refer to clinic/hospital department [facility] [address] [place] [phone] from Last 3 Months or Most Recently Relevant to Health Maintenance Insurance OPEN ACCESS HMO
--- OUTSIDE RECORDS SUMMARY | 2024-09-25 10:29 | XMS_ITS | Encounter Summary ---
Author Organization [facility] Address 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 [place], [place] [address] Admit Date: 08/19/2007 LUCAS OCONNELL Sex: F Admit Prov: MAGO AUSTIN Date: 1965 Primary Care Prov: CMRN: [id number] [facility] [address] [place] [address] IMAGING SERVICES Ordering Prov: N/A Interpretation CHEST [...] 08/20/2007 12:44 Transcribed: 08/20/2007 11:45 SMM Mago Kessler Mai, MD DIAGNOSTIC IMAGING ORDERABLES Fi nal Result documented in this encounter Visit Diagnoses Not on filedocumented in this encounter
== END 2024-09-25 09:35 | disposition home or self-care (01) ==
PROVIDERS: PCP Physician Assistant; Visit Provider Physician Assistant
DX: R07.9 Chest pain, unspecified (principal)
CPT/HCPCS: 93242

== ENCOUNTER 2024-09-28 12:12 | Outpatient (CLI) | payer BC, SELFPAY ==
--- NOTE | ~2024-09-28 | XR_ITS ---
EXAMINATION: XR UGI w kub DATE: 09/28/2024 13:08 INDICATION: Dysphagia TECHNIQUE: Adventure Therapist KUB was obtained on 2 overlapping cranial to caudal AP images. The patient drank thi ck barium, gas-producing crystals, and thin barium. Adventure Therapist A total of 569 fluoroscopic images of the e sophagus, stomach, and proximal small bowel were obtained. Fluoroscopy exposure time was 1.8 minutes. Total DAP was 11.557 Gycm^2. COMPARISON: None. FINDINGS: The esophagus is normal without mass or stricture. Esophageal motility is normal. There is a small sliding-type hiatal hernia with gastroesophageal junction 3-4 cm above the level of the diaph ragm. There was no gastroesophageal reflux with provocative maneuvers. The stomach and proximal small bowel are normal. IMPRESSION: 1. Small sliding-type hiatal hernia. Otherwise normal upper GI study. Reviewed, dictated and finalized at location A.
== END 2024-09-28 12:13 | disposition home or self-care (01) ==
LOC: MICIMG 12:13
PROVIDERS: PCP Physician Assistant; Visit Provider Physician Assistant
DX: K44.9 Diaphragmatic hernia without obstruction or gangrene (principal)
CPT/HCPCS: 74240; 74246